=== PATIENT | female | born 1965 | race Caucasian/White ===

== ENCOUNTER → 2017-08-20 | Outpatient (CLI) | payer OTHER ==
--- NOTE | 2017-08-20 15:34 | Diagnostic Imaging Report ---
INDICATION: Menorrhagia. TECHNIQUE: Multiple real-time grayscale images were obtained over the pelvis in various projections transabdominally and endovaginally. FINDINGS: The uterus measures 8.7 x 7.3 x 6 cm. Endometrial thickness is 6 mm. There are no discrete myometrial or endometrial masses. Both ovaries are obscured by bowel gas. There are no adnexal masses. There is no significant free pelvic fluid. Examination is somewhat limited due to the patient's body habitus. IMPRESSION: Unremarkable uterus and endometrium. Neither ovary is visualized. Dictated by: Dictated on workstation # [id number]
== END ==
LOC: RAD 13:53
PROVIDERS: ATTEND Nurse Practitioner
DX: Z12.31 Encounter for screening mammogram for malignant neoplasm of breast (principal); N92.0 Excessive and frequent menstruation with regular cycle; N84.1 Polyp of cervix uteri
CPT/HCPCS: 76830; 76856; 77067

== ENCOUNTER → 2017-09-14 | Outpatient (CLI) | payer OTHER ==
--- NOTE | 2017-09-14 19:37 | Diagnostic Imaging Report ---
INDICATION: Right breast density. The patient presents for additional views. Correlation is made with screening exam from 08/20/2017 and ultrasound of the right breast from earlier the same day. The current study was also evaluated with a Computer Aided Detection (CAD) system. FINDINGS: The density noted in the upper and inner aspect of the right breast anterior depth is not well visualized on the rolled CC views or the 90-degree lateral view. There is some minimal residual density on the spot compression CC view. This may represent fibroglandular tissue. No corresponding abnormality was identified with ultrasound. No suspicious calcifications are seen. IMPRESSION: Additional views fail to demonstrate a discrete mass. No mass was identified on ultrasound. Even so, followup right mammogram in 6 months is recommended to show continued stability. ACR BI-RADS Category 3: Probably benign findings. Result letter will be mailed to the patient. Note: At least 10% of breast cancer is not imaged by mammography. Dictated by: Dictated on workstation # [id number]
--- NOTE | 2017-09-14 19:46 | Diagnostic Imaging Report ---
INDICATION: Abnormal right mammogram. The study is performed for further evaluation. Correlation is made with screening mammogram from 08/20/2017. FINDINGS: Sonographic interrogation of the 12-3 o'clock location of the right breast was performed. No suspicious sonographic abnormality is seen. No solid or cystic mass is identified. IMPRESSION: No sonographic abnormality is seen. Therefore, a diagnostic right mammogram is recommended to further evaluate the density noted on recent screening study. ACR BI-RADS Category 0: Incomplete. (Needs additional imaging evaluation). Dictated by: Dictated on workstation # [id number]
== END ==
LOC: RAD 10:42
PROVIDERS: ATTEND Nurse Practitioner
DX: R92.8 Other abnormal and inconclusive findings on diagnostic imaging of breast (principal)